=== PATIENT | female | born 1955 | race Caucasian/White ===

== ENCOUNTER 2018-10-26 13:00 | Emergency (ER) | payer SELFPAY ==
[~2018-10-26] VITALS: Ht 167.6 cm; Wt 59.9 kg
--- NOTE | 2018-10-26 13:07 | NUR ---
[facility] HOME, POSSIBLE OVERDOSE TO UNKNOWN MEDICATION. PT APPEARS VERY DROWSY. AOX2, VSS, PLACED ON 2L O2 VIA NC FOR SAT 93%. PT UNABLE TO PROVIDE ANY INFORMATION. PLACED IN GOWN, ON MONITOR, READY FOR EVAL.
--- NOTE | 2018-10-26 13:15 | NUR ---
FRIEND AT BEDSIDE
[2018-10-26 13:25] LABS: BASOPHILS % (AUTO) 0.4 % (0.0-2.0); HEMATOCRIT 37 % (33-45); HEMOGLOBIN 12.5 g/dL (11.5-14.8); LYMPHOCYTES # (AUTO) 1.6 /CMM (0.8-4.8); LYMPHOCYTES % (AUTO) 29.6 % (20.0-44.0); MEAN CORPUSCULAR HGB CONC 34 g/dl (31.0-36.0); MEAN CORPUSCULAR VOLUME 86 fL (82-100); MONOCYTES # (AUTO) 0.5 /CMM (0.1-1.30); MONOCYTES % (AUTO) 9.1 % (2.0-12.0); NEUTROPHILS # (AUTO) 3.1 /CMM (1.8-8.9); NEUTROPHILS % (AUTO) 59.9 % (43.0-81.0); PLATELET COUNT (AUTO) 217 /CMM (150-450); RED BLOOD CELL COUNT(AUTO) 4.29 MIL/uL (4.0-5.2); WHITE BLOOD COUNT (AUTO) 5.3 K/uL (4.3-11.0)
[2018-10-26] MEDS ORDERED: IV NS 0.9% 1,000 ML BAG IV ONE (13:30)
[2018-10-26 13:36] LABS: CALCIUM, SERUM 8.9 mg/dL (8.5-10.1); CARBON DIOXIDE 28 mmol/L (21-32); CHLORIDE 104 mmol/L (98-107); CREATININE 0.7 mg/dL (0.6-1.3); GLUCOSE 96 mg/dL (74-106); POTASSIUM 3.8 mmol/L (3.5-5.1); SODIUM SERUM 139 mmol/L (136-145); UREA NITROGEN, BLOOD 13 mg/dL (7-18)
[2018-10-26 13:45] LABS: APPEARANCE,URINE Clear (CLEAR); BILIRUBIN,URINE Negative (NEGATIVE); BLOOD, URINE Small Ery/uL (NEGATIVE); COLOR,URINE Yellow (YELLOW); KETONES,URINE Negative (NEGATIVE); LEUKOCYTE ESTERASE ,URINE Trace (NEGATIVE); NITRITE, URINE Negative (NEGATIVE); PH,URINE 5.5 (5.0-8.0); PROTEIN,URINE Negative (NEGATIVE); UGLUCOSE Negative (NEGATIVE); UROBILINOGEN,URINE 0.2 EU/dL (0.2)
[2018-10-26 13:49] LABS: ACETAMINOPHEN < 2 ug/ml (10-30); ALANINE AMINOTRANSFERASE 15 U/L (12-78); ALBUMIN 3.5 g/dL (3.4-5.0); ALCOHOL, BLOOD < 3 mg/dL (0-0); ALKALINE PHOSPHATASE 79 U/L (46-116); ASPARTATE AMINOTRANSFERASE 17 U/L (15-37); BILIRUBIN,DIRECT 0.1 mg/dL (0.0-0.2); BILIRUBIN,TOTAL 0.5 mg/dL (0.2-1.0); SALICYLATE 3.1 mg/dL (2.8-20.0); TOTAL PROTEIN, SERUM 7.1 g/dL (6.4-8.2)
[2018-10-26 13:55] LABS: BACTERIA,URINE Rare /HPF (None Seen); SQUAMOUS EPITHELIAL CELL,UR Rare /HPF (None Seen); WBC,URINE 0-2 /HPF (0-3)
[2018-10-26 13:56] LABS: RBC,URINE 0-2 /HPF (0-2)
--- NOTE | 2018-10-26 14:39 | NUR ---
Patient is resting comfortably in bed with eyes closed. Easily aroused. VSS
--- NOTE | 2018-10-26 16:20 | NUR ---
REASSESSED PT, STILL AOX2. STILL VERY DROWSY. VSS, WILL CONT TO MONITOR.
--- NOTE | 2018-10-26 17:45 | NUR ---
PT UP TO USE RESTROOM WITH ASSISTANCE FROM FRIEND
[2018-10-26 17:59] VITALS: BP 100/53
--- NOTE | 2018-10-26 18:00 | NUR ---
Patient eloped from facility. ER MD notified. POSSIBLY STILL HAS IV CATHETER IN PLACE
--- NOTE | 2018-10-26 18:18 | NUR ---
CALLED [facility] SPOKE [phone]. LET THEM KNOW THAT THE PATIET HAD ELOPED.
--- NOTE | 2018-10-26 18:21 | NUR ---
CONTACT NUMBER ON FILE CALLED,LEFT A MESSAGE TO CALLBACK
== END 2018-10-26 18:15 | disposition left against medical advice (07) ==
LOC: ER 13:04
DX: G93.40 Encephalopathy, unspecified (principal)
CPT/HCPCS: 36415; 80048; 80076; 80305; 80307; 80329; 81001; 82962; 85025; 99283; G0480 ×2; J7030; 81000-TC